=== PATIENT | male | born 1990 | race Caucasian/White ===

== ENCOUNTER 2022-01-17 16:08 | Emergency (ER) | payer OTHER ==
[~2022-01-17] VITALS: Ht 182.9 cm; Wt 102.1 kg
[2022-01-17] MEDS ORDERED: ADVIL200 M1 PO (16:37)
[2022-01-17] MEDS ORDERED: HYDROCODON-ACE1 EA10 PO (18:24)
== END 2022-01-17 18:47 | disposition home or self-care (01) ==
LOC: ED 16:08
DX: S86.911A Strain of unspecified muscle(s) and tendon(s) at lower leg level, right leg, initial encounter (principal); V89.2XXA Person injured in unspecified motor-vehicle accident, traffic, initial encounter
CPT/HCPCS: 73560; 99283-25; A9270